=== PATIENT | female | born 1990 | race Caucasian/White ===

== ENCOUNTER 2017-09-02 17:23 | Emergency (ER) | payer OTHER ==
[2017-09-02 17:25] VITALS: BP 138/71; PULSE 86; RESP 16; TEMP 98.4; O2SAT 100
[2017-09-02 18:29] LABS: BACTERIA, URINE OCC /hpf; BILIRUBIN, URINE NEG (NEG); BLOOD, URINE NEG (NEG); GLUCOSE,URINE NEG (NEG); KETONE, URINE NEG (NEG); NITRITE,URINE NEG (NEG); SQUAMOUS EPITHELIAL CELL URINE 3 /hpf (0-5); URINE COLOR LIGHT-YELLOW (YELLW/STRAW); URINE LEUKOCYTE ESTERASE NEG (NEG)
[2017-09-02 18:30] LABS: AUTOMATED NEUTROPHIL # 7.6 TH/MM3 (1.8-7.7); BASOPHIL # 0.1 TH/MM3 (0-0.2); BASOPHIL % 0.5 % (0.0-2.0); EOSINOPHIL # 0.1 TH/MM3 (0-0.4); HEMATOCRIT 40.6 % (35.0-46.0); LYMPH % 20.8 % (9.0-44.0); LYMPHOCYTE # 2.2 TH/MM3 (1.0-4.8); MEAN CELL VOLUME 85.1 FL (80.0-100.0); MEAN CORPUSCULAR HEMOGLOBIN 29.5 PG (27.0-34.0); MEAN CORPUSCULAR HGB CONC 34.6 % (32.0-36.0); MEAN PLATELET VOLUME 11.7 FL (7.0-11.0); MONO % 5.6 % (0.0-8.0); MONOCYTE # 0.6 TH/MM3 (0-0.9); NEUT % 72.1 % (16.0-70.0); PLATELET COUNT 152 TH/MM3 (150-450); RED BLOOD COUNT 4.76 MIL/MM3 (4.00-5.30); RED CELL DISTRIBUTION WIDTH 13.2 % (11.6-17.2); WHITE BLOOD COUNT 10.5 TH/MM3 (4.0-11.0)
[2017-09-02 19:08] LABS: ALBUMIN 4.3 GM/DL (3.4-5.0); AST (GOT) 10 U/L (15-37); BICARBONATE 27.3 MEQ/L (21.0-32.0); BLOOD UREA NITROGEN 10 MG/DL (7-18); CHLORIDE 104 MEQ/L (98-107); CREATININE 0.69 MG/DL (0.50-1.00); GLOMERULAR FILTRATION RATE 102 ML/MIN (>89); GLUCOSE,RANDOM 77 MG/DL (74-106); LIPASE 122 U/L (73-393); SODIUM (NA) 139 MEQ/L (136-145)
[2017-09-02 19:11] LABS: ALKALINE PHOSPHATASE 63 U/L (45-117); ALT (GPT) 19 U/L (10-53); TOTAL BILIRUBIN ADULT 0.3 MG/DL (0.2-1.0); TOTAL PROTEIN 8.3 GM/DL (6.4-8.2)
[2017-09-02] MEDS ORDERED: SODIUM CHLOR 0.9% 1000 ML INJ 1,000 ML IV ONE (21:45)
[2017-09-02] MEDS ORDERED: ONDANSETRON HCL 4 MG/2 ML VIAL IV ONE (21:45)
--- NOTE | 2017-09-02 21:53 | PD ---
HPI Chief Complaint: GI Complaint Time Seen by Provider: 21:33 Travel History International Travel<30 days: No Contact w/Intl Traveler<30days: No Traveled to known affect area: No History of Present Illness HPI The patient is a 26 year old female who presents to the [facility] emergency department with a history of 4 days of abdominal bloating with cramping after eating and occurs in bilateral upper quadrants of the abdomen in the midepigastric area. The patient reports that the sharp cramping pains come and go. She reports that over the last 4 days she's also had pale light- colored stools. The patient reports that at time she feels constipated and only moves her bowels tiny amounts. She reports that this began after a week of diarrhea. She reports that when she had the diarrhea she was moving her bowels approximately 4 times per day. The patient reports that at that time her stool was light brown in color. She reports that she has noticed some darkening of her urine. She denies having any dysuria, urinary frequency, or urinary urgency. She reports that she has a long-standing history of heartburn and indigestion since childhood, treated when necessary symptoms with Tums. She denies ever seeing a winch operator her having endoscopy. She denies any recent antibiotic use. She reports that she felt lightheaded earlier today with fatigue over the last few days. She reports that she checked her blood pressure at home this morning and was 92/47. She denies on review of systems having any known recent fevers above 99, cough, congestion, neck pain, chest pain, shortness of breath, or neurologic symptoms. She reports having nausea without vomiting. LMP: 2 weeks ago [facility] Past Medical History Narrative Medical The patient's past medical history is significant for Brooks Parkinson's white status post ablation Cancer: No Cardiovascular Problems: Yes (WolffParkinsonWhite) Diabetes: No Diminished Hearing: No Psychiatric: Yes Migraines: No Seizures: No Thyroid Disease: No Ulcer: No Tetanus Vaccination: > 5 Years Influenza Vaccination: No ?: Not LMP: 2 weeks ago Past Surgical History Narrative Surgical The patient's past surgical history is significant for a cardiac ablation Surgical History: No Previous Surgery Appendectomy: No Cardiac Surgery: Yes (ABLASION) Cholecystectomy: No Social History Alcohol Use: Yes (OCCASIONALLY) Tobacco Use: No Substance Use: No Allergies-Medications (Allergen,Severity, Reaction): Coded Allergies: No Known Allergies (Verified Allergy, Severe, 09/02/17) Uncoded Allergies: NKA (Allergy, Unknown, 11/23/04) Reported Meds & Prescriptions Reported Meds & Active Scripts Active No Active Prescriptions or Reported Medications Review of Systems Except as stated in HPI: all other systems reviewed are Neg General / Constitutional: No: Fever Eyes: No: Visual changes HENT: No: Headaches Cardiovascular: No: Chest Pain or Discomfort Respiratory: No: Shortness of Breath Gastrointestinal: Positive: Nausea, Diarrhea, Abdominal Pain, Changes in Bowel Habits, Indigestion, No: Loss of Appetite Genitourinary: No: Dysuria Musculoskeletal: No: Pain Skin: No Rash Neurologic: No: Weakness Psychiatric: No: Depression Endocrine: No: Polydipsia Hematologic/Lymphatic: No: Easy Bruising Physical Exam Narrative General: The patient is a well-developed well-nourished female in no acute distress. Head and Neck exam: Head is normocephalic atraumatic. Eyes: EOMI, pupils are equal round and reactive to light. Nose: Midline septum with pink mucous membranes Mouth: Dentition unremarkable. Moist mucus membranes. Posterior oropharynx is not erythematous. No tonsillar hypertrophy. Uvula midline. Airway patent. Neck: No palpable lymphadenopathy. No nuchal rigidity. No thyromegaly. Cardiovascular: Regular rate and rhythm without murmurs, gallops, or rubs. Lungs: Clear to auscultation bilaterally. No wheezes, rhonchi, or rales. Abdomen: Soft, with tenderness on palpation of the midepigastric area, right and left upper quadrants of the abdomen. Negative Chi's sign. No tenderness on palpation of McBurney's point. Normal bowel sounds are audible. No guarding, rebound, or rigidity. Extremities: No clubbing, cyanosis, or edema. 2+ pulses in all 4 extremities. Back: No spinous process tenderness to palpation. No costovertebral angle tenderness to palpation. Neurologic Exam: Grossly nonfocal. Skin Exam: No rash noted. Intact skin that is warm and dry. Data Data Last Documented VS Vital Signs Date Time Temp Pulse Resp B/P (MAP) Pulse Ox O2 Delivery O2 Flow Rate FiO2 09/02/17 17:25 98.4 86 16 138/71 (93) 100 Orders Orders Complete Blood Count With Diff (09/02/17 17:37) Comprehensive Metabolic Panel (09/02/17 17:37) Lipase (09/02/17 17:37) Urinalysis - C+S If Indicated (09/02/17 17:37) Ed Urine Pregnancytest Poc (09/02/17 17:37) Sodium Chlor 0.9% 1000 Ml Inj (Ns 1000 M (09/02/17 21:45) Ondansetron Inj (Zofran Inj) (09/02/17 21:45) Us Abdomen Gallbladder (09/02/17 21:46) Famotidine Inj (Pepcid Inj) (09/02/17 22:45) Labs Laboratory Tests Test 09/02/17 17:53 White Blood Count 10.5 TH/MM3 Red Blood Count 4.76 MIL/MM3 Hemoglobin 14.0 GM/DL Hematocrit 40.6 % Mean Corpuscular Volume 85.1 FL Mean Corpuscular Hemoglobin 29.5 PG Mean Corpuscular Hemoglobin Concent 34.6 % Red Cell Distribution Width 13.2 % Platelet Count 152 TH/MM3 Mean Platelet Volume 11.7 FL Neutrophils (%) (Auto) 72.1 % Lymphocytes (%) (Auto) 20.8 % Monocytes (%) (Auto) 5.6 % Eosinophils (%) (Auto) 1.0 % Basophils (%) (Auto) 0.5 % Neutrophils # (Auto) 7.6 TH/MM3 Lymphocytes # (Auto) 2.2 TH/MM3 Monocytes # (Auto) 0.6 TH/MM3 Eosinophils # (Auto) 0.1 TH/MM3 Basophils # (Auto) 0.1 TH/MM3 CBC Comment DIFF FINAL Differential Comment Urine Color LIGHT-YELLOW Urine Turbidity CLEAR Urine pH 7.0 Urine Specific [place] 1.004 Urine Protein NEG mg/dL Urine Glucose (UA) NEG mg/dL Urine Ketones NEG mg/dL Urine Occult Blood NEG Urine Nitrite NEG Urine Bilirubin NEG Urine Urobilinogen LESS THAN 2.0 MG/DL Urine Leukocyte Esterase NEG Urine RBC LESS THAN 1 /hpf Urine WBC 1 /hpf Urine Squamous Epithelial Cells 3 /hpf Urine Bacteria OCC /hpf Microscopic Urinalysis Comment CULT NOT INDICATED Blood Urea Nitrogen 10 MG/DL Creatinine 0.69 MG/DL Random Glucose 77 MG/DL Total Protein 8.3 GM/DL Albumin 4.3 GM/DL Calcium Level 9.0 MG/DL Alkaline Phosphatase 63 U/L Aspartate Amino Transf (AST/SGOT) 10 U/L Alanine Aminotransferase (ALT/SGPT) 19 U/L Total Bilirubin 0.3 MG/DL Sodium Level 139 MEQ/L Potassium Level 3.7 MEQ/L Chloride Level 104 MEQ/L Carbon Dioxide Level 27.3 MEQ/L Anion Gap 8 MEQ/L Estimat Glomerular Filtration Rate 102 ML/MIN Lipase 122 U/L MDM Medical Decision Making Medical Screen Exam Complete: Yes Emergency Medical Condition: Yes Medical Record Reviewed: Yes Differential Diagnosis Lactose intolerance after gastroenteritis, versus biliary colic, versus acute cholecystitis, versus pancreatitis Narrative Course During the course of the patients emergency department visit, the patients history, examination, and differential diagnosis were reviewed with the patient. The patient was placed on a golf course architect with oximetry and frequent blood pressure monitoring. The patient had IV access obtained and blood work sent for analysis. An ultrasound of the gallbladder has been ordered. The patient was initially provided normal saline 1 L IV fluid bolus, Zofran 4 mg IV. The patients laboratory studies were reviewed and remarkable for a white count of 10.5, hemoglobin 14, platelets 152 with neutrophils 72.1, CMP is remarkable for an AST of 10, total protein 8.3, lipase 122, urinalysis is unremarkable. Radiology studies were reviewed and remarkable for an ultrasound that shows no acute abnormality. The patient's symptoms could be related to a lactose intolerance after an acute diarrheal illness, therefore I recommended that she avoid lactose containing food and drink over the next week and then reintroduce it slowly. I also recommended that the patient start a probiotic supplement and take this over the next month to recolonize her intestines with good bacteria. The patient was given famotidine 20 mg IV and famotidine to be taken over the next few weeks due to her history of indigestion and heartburn symptoms. The patient was also given a prescription for Zofran at discharge. The patient is resting comfortably and feels better, is alert and in no distress. The patients results and examination findings were discussed with the patient. The repeat examination is unremarkable and benign. The history, exam, diagnostic testing, and current condition do not suggest any significant pathology to warrant further testing, continued ED treatment, admission, or surgical evaluation at this point. The vital signs have been stable. The patient does not have uncontrollable pain, intractable vomiting, or other significant symptoms. The patient's condition is stable and appropriate for discharge. The patient will pursue further outpatient evaluation with a primary care physician or other designated or consulting physician as indicated in the discharge instructions. The patient expressed understanding and was agreeable with this plan. Diagnosis Primary Impression: Abdominal pain Qualified Codes: R10.10 - Upper abdominal pain, unspecified Additional Impression: Dyspepsia Referrals: Primary Care Physician 1 week Patient Instructions: Abdominal Pain (ED), General Instructions Additional Instructions: The patient's symptoms could be related to a lactose intolerance after an acute diarrheal illness, therefore I recommended that she avoid lactose containing food and drink over the next week and then reintroduce it slowly. I also recommended that the patient start a probiotic supplement and take this over the next month to recolonize her intestines with good bacteria. The patient was given famotidine 20 mg IV and famotidine as a prescription to be taken over the next few weeks due to her history of indigestion and heartburn symptoms. The patient was also given a prescription for Zofran at discharge. Med/Other Pt SpecificInfo: Prescription(s) given Scripts Ondansetron Odt (Zofran Odt) 4 Mg Tab 4 MG SL Q6HR Y for Nausea/Vomiting, #7 TAB 0 Refills Prov: Andria Guzman MD 09/02/17 Famotidine (Famotidine) 20 Mg Tab 20 MG PO BID, #28 TAB 0 Refills Prov: Andria Guzman MD 09/02/17 Disposition: 01 DISCHARGE HOME Condition: Stable Andria Guzman MD Sep 02, 2017 21:53
--- NOTE | 2017-09-02 22:24 | RADRPT ---
EXAM DATE/TIME: 09/02/2017 21:46 [place] COMPARISON: No previous studies available for comparison. INDICATIONS : Right upper quadrant pain. MEDICAL HISTORY : [id number]. Psychiatric problems. SURGICAL HISTORY : Cardiac ablation. ENCOUNTER: Initial ACUITY: 4-6 days PAIN SCORE: 4/10 LOCATION: Right upper quadrant MEASUREMENTS: LIVER: 13.7 cm length COMMON DUCT: 3 mm RIGHT KIDNEY: 10.0 x 4.0 x 4.1 cm FINDINGS: LIVER: Normal echotexture without focal lesion or ductal dilatation. COMMON DUCT: No intraluminal mass or stone visualized. GALLBLADDER: Contains no stones, demonstrates no wall thickening or pericholecystic fluid. PANCREAS: The visualized portions are within normal limits. RIGHT KIDNEY: No evidence of hydronephrosis, stone, or mass. CONCLUSION: 1. Examination within normal limits for age. Pieter Sullivan MD on September 02, 2017 at 22:21 Board Certified Radiologist. This report was verified electronically.
[2017-09-02] MEDS ORDERED: ZOFR4TAB3 SL (22:43)
[2017-09-02] MEDS ORDERED: FAMO20TA2 PO (22:43)
[2017-09-02] MEDS ORDERED: FAMOTIDINE 20 MG/2 ML VIAL IV PUSH SCH (22:45)
[2017-09-02 23:12] VITALS: BP 122/75
== END 2017-09-02 23:28 | disposition home or self-care (01) ==
LOC: NEPC 17:23
DX: R10.13 Epigastric pain (principal); R19.7 Diarrhea, unspecified
CPT/HCPCS: 76705; 80053; 81001; 83690; 84703; 85025; 96361; 96374; 96375; 99285; J2405; J7030